=== PATIENT | female | born 1950 | race Hispanic/Latino ===

== ENCOUNTER 2017-04-02 20:38 | Emergency (ER) | payer MEDICARE, BC ==
[2017-04-02 20:55] VITALS: BMI 23.3
--- NOTE | 2017-04-02 21:16 | ED PDOC ---
Arrival/HPI - General Time Seen by Provider: 04/02/17 20:55 Historian: Patient - History of Present Illness Narrative History of Present Illness (Text): 04/02/17 21:05 Marlee Coffey is a 66 year old female who presents to the emergency department complaining of left eye irritation that began prior to arrival. Patient reports she was walking down the street and felt something go into her left eye. Ever since this occurred her eye has been irritated and causing her discomfort. Patient notes wearing glasses, but no contacts. Patient denies other complaints. Time/Duration: Prior to Arrival Symptom Onset: Sudden Symptom Course: Unchanged Quality: Other (irritation) Activities at Onset: Light Context: Walking, Street Past Medical History - Provider Review Nursing Documentation Reviewed: Yes - Tetanus Immunization Tetanus Immunization: Up to Date - Cardiac Hx Hypertension: Yes - Pulmonary Hx Respiratory Disorders: No Hx Asthma: No Hx Bronchitis: No Hx Chronic Obstructive Pulmonary Disease (COPD): No Hx Emphysema: No Hx Pneumonia: No Hx Respiratory Aspiration: No Hx Respiratory Tract Infection: No Hx Sleep Apnea: No Hx Tuberculosis: No - Neurological Hx Neurological Disorder: No Hx Alzheimer's Disease: No HX Cerebrovascular Accident: No Hx Dementia: No Hx Dizziness: No Hx Meningitis: No Hx Migraine: No Hx Parkinson's Disease: No Hx Seizures: No Hx Transient Ischemic Attacks (TIA): No - HEENT Hx HEENT Disorder: No Hx Blind: No Hx Cataracts: No Hx Deafness: No Hx Difficulty Chewing: No Hx Epistaxis: No Hx Glaucoma: No Hx Macular Degeneration: No - Renal Hx Renal Disorder: No Hx Dialysis: No Hx Kidney Stones: No Hx Neurogenic Bladder: No Hx Pyelonephritis: No Hx Renal Cancer: No Hx Renal Failure: No - Endocrine/Metabolic Hx Endocrine Disorders: No Hx Adrenal Cancer: No Hx Diabetes Insipidus: No Hx Diabetes Mellitus Type 1: No Hx Diabetes Mellitus Type 2: No Hx Hyperthyroidism: No Hx Hypothyroidism: No Hx Systemic Lupus Erythematosus: No - Hematological/Oncological Hx Blood Disorders: No Hx AIDS: No Hx Anemia: No Hx Cancer: No Hx Chemotherapy: No Hx Cirrhosis: No Hx Hemophilia: No Hx Hepatitis A: No Hx Hepatitis B: No Hx Hepatitis C: No Hx Metastasis: No Hx Shingles: No Hx Sickle Cell Disease: No Hx Unexplained Bleeding: No - Integumentary Hx Dermatological Disorder: No Hx Basal Cell Carcinoma: No Hx Eczema: No Hx Melanoma: No Hx Psoriasis: No Hx Squamous Cell Carcinoma: No - Musculoskeletal/Rheumatological Hx Musculoskeletal Disorders: Yes Hx Arthritis: No Hx Back Pain: No Hx Degenerative Joint Disease: No Hx Falls: Yes Hx Fractures: Yes (distal radius and ulnar styloid fx) Hx Gout: No Hx Herniated Disk: No Hx Myasthenia Gravis: No Hx Osteoarthritis: No Hx Osteomyelitis: No Hx Osteoporosis: No Hx Rhabdomyolysis: No Hx Spinal Stenosis: No Hx Unsteady Gait: Yes Other/Comment: Multiple Sclerosis - Gastrointestinal Hx Gastrointestinal Disorders: Yes Hx Colostomy: No Hx Crohn's Disease: No Hx Diverticulitis: No Hx Gall Bladder Disease: No Hx Gastroesophageal Reflux: Yes Hx Gastrointestinal Ulcer: No Hx Ileostomy: No Hx Liver Failure: No Hx Pancreatitis: No HX Swallowing Problems: No - Genitourinary/Gynecological Hx Genitourinary Disorders: No Hx Hematuria: No Hx Incontinence: No Hx Prostate Problems: No Hx Sexually Transmitted Diseases: No Hx Urinary Tract Infection: No - Psychiatric Hx Psychophysiologic Disorder: Yes Hx Anxiety: Yes Hx Bipolar Disorder: No Hx Depression: Yes Hx Emotional Abuse: No Hx Hallucinations: No Hx Panic Disorder: No Hx Paranoia: No Hx Post Traumatic Stress Disorder: No Hx Psychosis: No Hx Physical Abuse: No Hx Schizophrenia: No Hx Sexual Abuse: No Hx Substance Use: No - Surgical History Hx Amputation: No Hx Appendectomy: No Hx Cardiac Catheterization: No Hx Cholecystectomy: Yes Hx Coronary Stent: No Hx Gastric Bypass Surgery: No Hx Hysterectomy: No Hx Inguinal Hernia Repair: No Hx Joint Replacement: No Hx Kidney Transplant: No Hx Liver Transplant: No Hx Mastectomy: No Hx Musculoskeletal Surgery: No Hx Open Heart Surgery: No Hx Orthopedic Surgery: No Hx Splenectomy: No Hx Valve Replacement: No - Anesthesia Hx Anesthesia: Yes Hx Anesthesia Reactions: No Hx Malignant Hyperthermia: No - Suicidal Assessment Feels Threatened In Home Enviroment: No Family/Social History - Physician Review Nursing Documentation Reviewed: Yes Family/Social History: Unknown Family HX Smoking Status: Never Smoked Hx Alcohol Use: No Hx Substance Use: No Hx Substance Use Treatment: No Allergies/Home Meds Allergies/Adverse Reactions: Allergies No Known Allergies Allergy (Verified 07/09/15 04:03) Review of Systems - Review of Systems Constitutional: absent: Fevers Eyes: Eye Pain (left eye irritation due to possible foreign substance that entered the eye. ) Respiratory: absent: SOB Cardiovascular: absent: Chest Pain Physical Exam Temperature: Afebrile Blood Pressure: Normal Pulse: Regular Respiratory Rate: Normal Appearance: Positive for: Well-Appearing, Non-Toxic, Comfortable Pain Distress: None Mental Status: Positive for: Alert and Oriented X 3 - Systems Exam Head: Present: Atraumatic, Normocephalic Pupils: Present: PERRL, Other (tearing of left eye. no foreign susbtance were identified on eversion of lid) Extroacular Muscles: Present: EOMI Conjunctiva: Present: Injected Neck: Present: Normal Range of Motion Upper Extremity: Present: Normal ROM Lower Extremity: Present: Normal ROM Neurological: Present: GCS=15, CN II-XII Intact, Speech Normal Skin: Present: Warm, Dry, Normal Color. No: Rashes Psychiatric: Present: Alert, Oriented x 3, Normal Insight, Normal Concentration Medical Decision Making ED Course and Treatment: 04/02/17 Impression: 66 year old female with irritation on the left eye. No detection of foreign bodies. Plan: -- Visual acuity, irrigation, fluoroscein stain -- Reassess and disposition Progress Notes: Flushing and staining of the eye to detect foreign particles. 04/02/17 21:42 Eye was copiously irrigated with 250cc NS. Visual acuity 20/30 vision b/l. Corneal abrasion appreciated at 6oclock - Scribe Statement The provider has reviewed the documentation as recorded by the Scribe 04/02/2017 Cinthia Duffya Provider Scribe Attestation: All medical record entries made by the Scribe were at my direction and personally dictated by me. I have reviewed the chart and agree that the record accurately reflects my personal performance of the history, physical exam, medical decision making, and the department course for this patient. I have also personally directed, reviewed, and agree with the discharge instructions and disposition. Disposition/Present on Arrival - Present on Arrival Any Indicators Present on Arrival: No History of DVT/PE: No History of Uncontrolled Diabetes: No Urinary Catheter: No History Surgical Site Infection Following: None - Disposition Have Diagnosis and Disposition been Completed?: Yes Diagnosis: Corneal abrasion Disposition: HOME/ ROUTINE Disposition Time: 21:42 Patient Plan: Discharge Patient Problems: Current Active Problems Problem Status Onset Corneal abrasion Acute Condition: GOOD Discharge Instructions (ExitCare): Corneal Abrasion (ED) Additional Instructions: Follow up with [facility] within 2 days. Use drop for 5 days. Return immediately with any worsening symptoms Prescriptions: Ciprofloxacin 0.3% [Ciloxan 0.3% Ophth SOLN] 2 drop OS QID #1 bottle Referrals: José Richard MD [Primary Care Provider] - Follow up with primary
[2017-04-02 22:01] VITALS: BP 176/94; PULSE 66; RESP 18; O2SAT 96
== END 2017-04-02 22:15 | disposition home or self-care (01) ==
LOC: ED 20:38
DX: S05.02XA Injury of conjunctiva and corneal abrasion without foreign body, left eye, initial encounter (principal); X58.XXXA Exposure to other specified factors, initial encounter; Y93.01 Activity, walking, marching and hiking; Y92.410 Unspecified street and highway as the place of occurrence of the external cause

== ENCOUNTER 2017-05-10 14:56 | Inpatient (IN) | payer MEDICARE, BC ==
[2017-05-10 15:28] VITALS: BMI 29.8
--- NOTE | 2017-05-10 15:32 | RAD ---
HISTORY: code stroke COMPARISON: 12/27/2013 FINDINGS: LUNGS: No active pulmonary disease. PLEURA: No significant pleural effusion identified, no pneumothorax apparent. CARDIOVASCULAR: Normal. OSSEOUS STRUCTURES: No significant abnormalities. VISUALIZED UPPER ABDOMEN: Normal. OTHER FINDINGS: None. IMPRESSION: No active disease.
--- NOTE | 2017-05-10 15:32 | CT ---
PROCEDURE: CT HEAD WITHOUT CONTRAST. HISTORY: Code Stroke COMPARISON: MRI brain with and without contrast from 07/25/[address] from 05/13/2016. TECHNIQUE: Axial computed tomography images were obtained through the head/brain without intravenous contrast. Radiation dose: Total exam DLP = 941.65 mGy-cm. This CT exam was performed using one or more of the following dose reduction techniques: Automated exposure control, adjustment of the mA and/or kV according to patient size, and/or use of iterative reconstruction technique. FINDINGS: HEMORRHAGE: No intracranial hemorrhage. BRAIN: There are mild chronic microangiopathic changes. There is no mass, mass effect or abnormal extra-axial fluid collection. VENTRICLES: There is mild age-related global parenchymal volume loss and proportionate enlargement of the ventricles and cortical sulci CALVARIUM: The skull base and calvarium are normal. PARANASAL SINUSES: Predominantly clear. MASTOID AIR CELLS: Predominantly clear. OTHER FINDINGS: None. IMPRESSION: No acute intracranial abnormality. Mild chronic microangiopathic changes and mild age-related global parenchymal volume loss. Findings were discussed with Dr. Ronnell Stauffer in the ER on 05/10/2017 at 3:27 p.m.
[2017-05-10 15:52] LABS: BASO # 0.07 K/mm3 (0.0-2.0); BASO % 1.1 % (0.0-3.0); EOS # 0.4 (0.0-0.7); EOS % 6.9 % (1.5-5.0); GRAN # 3.07 (1.4-6.5); GRAN % 48.9 % (50.0-68.0); HEMATOCRIT 39.3 % (36.0-48.0); LYMPH # 2.1 (1.2-3.4); LYMPH % 33.8 % (22.0-35.0); MEAN CELL VOLUME 88.5 fl (80.0-105.0); MEAN CORPUSCULAR HEMOGLOBIN 29.1 pg (25.0-35.0); MEAN CORPUSCULAR HGB CONC 32.8 g/dl (31.0-37.0); MEAN PLATELET VOLUME 8.8 fl (7.0-11.0); MONO # 0.6 (0.1-0.6); MONO % 9.3 % (1.0-6.0); RED CELL DISTRIBUTION WIDTH 14.1 % (11.5-14.5); WHITE BLOOD COUNT 6.3 10^3/ul (4.5-11.0)
[2017-05-10 15:54] LABS: ALB/GLOB RATIO 1.3 (1.1-1.8); ALKALINE PHOSPHATASE 74 U/L (38-126); ALT/SGPT 31 U/L (7-56); AST/SGOT 26 U/L (14-36); BILIRUBIN,TOTAL 0.5 mg/dL (0.2-1.3); BLOOD UREA NITROGEN 19 mg/dL (7-21); CALCIUM 9.1 mg/dL (8.4-10.5); CARBON DIOXIDE 28 mmol/L (21-33); CHLORIDE 105 mmol/L (98-107); CHOLESTEROL 170 mg/dL (130-200); GFR AFRICAN-AMERICAN > 60; GLUCOSE,RANDOM 84 mg/dL (70-110); POTASSIUM 3.4 mmol/L (3.6-5.0); SODIUM 142 mmol/L (132-148); TOTAL PROTEIN 6.3 g/dL (5.8-8.3)
[2017-05-10 15:56] LABS: INR 0.98 (0.93-1.08); PARTIAL THROMBOPLASTIN TIME 25.2 Seconds (23.7-30.8)
--- NOTE | 2017-05-10 16:04 | ED PDOC ---
Arrival/HPI - General Chief Complaint: Dizziness/Lightheaded Time Seen by Provider: 05/10/17 14:59 Historian: Patient, Family, EMS - History of Present Illness Narrative History of Present Illness (Text): 05/10/17 15:05 A 66 year old female, whose past medical history includes MS, is brought in by EMS while AMS. Per family, they reported patient to have "facial twitching". Patient was confused and had become altered. Patient has no known seizure history. She had a recent EEG with no known results. Patient denies of any complaints of this time and is mildly confused. Code stroke was called upon patient's arrival. PMD: Dr. Richard Symptom Onset: Sudden Symptom Course: Unchanged Past Medical History - Provider Review Nursing Documentation Reviewed: Yes - Infectious Disease Hx of Infectious Diseases: None - Tetanus Immunization Tetanus Immunization: Up to Date - Cardiac Hx Hypertension: Yes - Pulmonary Hx Respiratory Disorders: No Hx Asthma: No Hx Bronchitis: No Hx Chronic Obstructive Pulmonary Disease (COPD): No Hx Emphysema: No Hx Pneumonia: No Hx Respiratory Aspiration: No Hx Respiratory Tract Infection: No Hx Sleep Apnea: No Hx Tuberculosis: No - Neurological Hx Neurological Disorder: No Hx Alzheimer's Disease: No HX Cerebrovascular Accident: No Hx Dementia: No Hx Dizziness: No Hx Meningitis: No Hx Migraine: No Hx Parkinson's Disease: No Hx Seizures: No Hx Transient Ischemic Attacks (TIA): No - HEENT Hx HEENT Disorder: No Hx Blind: No Hx Cataracts: No Hx Deafness: No Hx Difficulty Chewing: No Hx Epistaxis: No Hx Glaucoma: No Hx Macular Degeneration: No - Renal Hx Renal Disorder: No Hx Dialysis: No Hx Kidney Stones: No Hx Neurogenic Bladder: No Hx Pyelonephritis: No Hx Renal Cancer: No Hx Renal Failure: No - Endocrine/Metabolic Hx Endocrine Disorders: No Hx Adrenal Cancer: No Hx Diabetes Insipidus: No Hx Diabetes Mellitus Type 1: No Hx Diabetes Mellitus Type 2: No Hx Hyperthyroidism: No Hx Hypothyroidism: No Hx Systemic Lupus Erythematosus: No - Hematological/Oncological Hx Blood Disorders: No Hx AIDS: No Hx Anemia: No Hx Cancer: No Hx Chemotherapy: No Hx Cirrhosis: No Hx Hemophilia: No Hx Hepatitis A: No Hx Hepatitis B: No Hx Hepatitis C: No Hx Metastasis: No Hx Shingles: No Hx Sickle Cell Disease: No Hx Unexplained Bleeding: No - Integumentary Hx Dermatological Disorder: No Hx Basal Cell Carcinoma: No Hx Eczema: No Hx Melanoma: No Hx Psoriasis: No Hx Squamous Cell Carcinoma: No - Musculoskeletal/Rheumatological Hx Musculoskeletal Disorders: Yes Hx Arthritis: No Hx Back Pain: No Hx Degenerative Joint Disease: No Hx Falls: Yes Hx Fractures: Yes (distal radius and ulnar styloid fx) Hx Gout: No Hx Herniated Disk: No Hx Myasthenia Gravis: No Hx Osteoarthritis: No Hx Osteomyelitis: No Hx Osteoporosis: No Hx Rhabdomyolysis: No Hx Spinal Stenosis: No Hx Unsteady Gait: Yes Other/Comment: Multiple Sclerosis - Gastrointestinal Hx Gastrointestinal Disorders: Yes Hx Colostomy: No Hx Crohn's Disease: No Hx Diverticulitis: No Hx Gall Bladder Disease: No Hx Gastroesophageal Reflux: Yes Hx Gastrointestinal Ulcer: No Hx Ileostomy: No Hx Liver Failure: No Hx Pancreatitis: No HX Swallowing Problems: No - Genitourinary/Gynecological Hx Genitourinary Disorders: No Hx Hematuria: No Hx Incontinence: No Hx Prostate Problems: No Hx Sexually Transmitted Diseases: No Hx Urinary Tract Infection: No - Psychiatric Hx Psychophysiologic Disorder: Yes Hx Anxiety: Yes Hx Bipolar Disorder: No Hx Depression: Yes Hx Emotional Abuse: No Hx Hallucinations: No Hx Panic Disorder: No Hx Post Traumatic Stress Disorder: No Hx Psychosis: No Hx Physical Abuse: No Hx Schizophrenia: No Hx Sexual Abuse: No Hx Substance Use: No - Surgical History Hx Amputation: No Hx Appendectomy: No Hx Cardiac Catheterization: No Hx Cholecystectomy: Yes Hx Coronary Stent: No Hx Gastric Bypass Surgery: No Hx Hysterectomy: No Hx Joint Replacement: No Hx Kidney Transplant: No Hx Liver Transplant: No Hx Mastectomy: No Hx Musculoskeletal Surgery: No Hx Open Heart Surgery: No Hx Orthopedic Surgery: No Hx Splenectomy: No Hx Valve Replacement: No - Anesthesia Hx Anesthesia: Yes Hx Anesthesia Reactions: No Hx Malignant Hyperthermia: No - Suicidal Assessment Feels Threatened In Home Enviroment: No Family/Social History - Physician Review Nursing Documentation Reviewed: Yes Family/Social History: No Known Family HX Smoking Status: Never Smoked Hx Alcohol Use: No Hx Substance Use: No Hx Substance Use Treatment: No Allergies/Home Meds Allergies/Adverse Reactions: Allergies No Known Allergies Allergy (Verified 05/10/17 18:09) Home Medications: Home Meds Medication Instructions Recorded Confirmed Alprazolam [Xanax] 0.5 mg PO Q8H 05/10/17 05/10/17 Atorvastatin [Lipitor] 40 mg PO DAILY 05/10/17 05/10/17 Diclofenac Sodium/Misoprostol 1 tab PO BID 05/10/17 05/10/17 [Arthrotec 75 mg-200 Mcg Tab] Esomeprazole Magnesium [Nexium] 40 mg PO DAILY 05/10/17 05/10/17 Folic Acid [Folic Acid] 1 mg PO DAILY 05/10/17 05/10/17 Loratadine [Claritin] 1 tab PO DAILY 05/10/17 05/10/17 Losartan [Cozaar] 50 mg PO DAILY 05/10/17 05/10/17 Teriflunomide [Aubagio] 1 tab PO DAILY 05/10/17 05/10/17 Review of Systems - Review of Systems Systems not reviewed;Unavailable: Altered Mental Status Physical Exam - Physical Exam Physical Exam Limitations: Altered Mental Status Vital Signs Reviewed: Yes Vital Signs Temp Pulse Resp BP Pulse Ox 05/10/17 19:53 78 16 163/95 H 96 05/10/17 17:15 84 17 159/78 H 96 05/10/17 15:22 98.2 F 81 18 133/84 100 Temperature: Afebrile Blood Pressure: Normal Pulse: Regular Respiratory Rate: Normal Appearance: Positive for: Well-Appearing Pain Distress: None Mental Status: Positive for: Alert and Oriented X 3 Finger Stick Blood Glucose: 80 - Systems Exam Neurological: Present: Other (benign, patient confused) Medical Decision Making ED Course and Treatment: Impression: 66 year old female AMS. Neuro exam benign. Plan: -- EKG -- Head CT -- Chest X-ray -- Labs -- Urinalysis -- Reassess and disposition Prior Visits: Notes and results from previous visits were reviewed. Patient was last seen in the emergency department on 03/13/2017 for left eye irritation. Patient was d/c home. Progress Notes: EKG: Ordered, reviewed, and independently interpreted the EKG. Rate : 77 BPM Rhythm : NSR Interpretation : No ST-segment elevations or depressions, no T-wave inversions, normal intervals. Comparison : No previous EKG for comparison. 05/10/2017 15:[address] FINDINGS: HEMORRHAGE: No intracranial hemorrhage. BRAIN: There are mild chronic microangiopathic changes. There is no mass, mass effect or abnormal extra-axial fluid collection. VENTRICLES: There is mild age-related global parenchymal volume loss and proportionate enlargement of the ventricles and cortical sulci CALVARIUM: The skull base and calvarium are normal. PARANASAL SINUSES: Predominantly clear. MASTOID AIR CELLS: Predominantly clear. OTHER FINDINGS: None. IMPRESSION: No acute intracranial abnormality. Mild chronic microangiopathic changes and mild age-related global parenchymal volume loss. Findings were discussed with Dr. Ronnell Stauffer in the ER on 05/10/2017 at 3:27 p.m. Dictator: Codi Shay MD 05/10/2017 15:00 Chest X-ray FINDINGS: LUNGS: No active pulmonary disease. PLEURA: No significant pleural effusion identified, no pneumothorax apparent. CARDIOVASCULAR: Normal. OSSEOUS STRUCTURES: No significant abnormalities. VISUALIZED UPPER ABDOMEN: Normal. OTHER FINDINGS: None. IMPRESSION: No active disease. Dictator: Nicko Lozada MD 05/10/[address] Corrales, whom states patient is not a candidate for tPA and recommends having an MRI done on patient. - Lab Interpretations Lab Results: 05/10/17 15:30 05/10/17 15:30 Lab Results 05/10/17 15:30: Blood Type A POSITIVE, Antibody Screen Negative, BBK History Checked Patient has bt 05/10/17 15:30: Sodium 142, Potassium 3.4 L, Chloride 105, Carbon Dioxide 28, Anion Gap 12, BUN 19, Creatinine 1.1, Est GFR ( Amer) > 60, Est GFR (Non- Af Amer) 50, Random Glucose 84, Calcium 9.1, Total Bilirubin 0.5, AST 26, ALT 31 , Alkaline Phosphatase 74, Lactate Dehydrogenase 434, Total Creatine Kinase 50, Troponin I < 0.01, Total Protein 6.3, Albumin 3.6, Globulin 2.7, Albumin/ Globulin Ratio 1.3, Triglycerides 77, Cholesterol 170, LDL Cholesterol Direct 81 , HDL Cholesterol 66 H 05/10/17 15:30: PT 10.6, INR 0.98, APTT 25.2 05/10/17 15:30: WBC 6.3, RBC 4.44, Hgb 12.9, Hct 39.3, MCV 88.5, MCH 29.1, MCHC 32.8, RDW 14.1, Plt Count 249, MPV 8.8, Gran % 48.9 L, Lymph % (Auto) 33.8, [place] % (Auto) 9.3 H, Eos % (Auto) 6.9 H, Baso % (Auto) 1.1, Gran # 3.07, Lymph # 2.1, [place] # 0.6, Eos # 0.4, Baso # 0.07 I have reviewed the lab results: Yes - RAD Interpretation Radiology Orders: 05/10/17 15:00 HEAD W/O (CODE STROKE) [CT] Stat CHEST PORTABLE [RAD] Stat - Medication Orders Current Medication Orders: Alprazolam (Xanax) 0.5 mg PO DAILY MARYSE PRN Reason: Protocol Alprazolam (Xanax) 0.5 mg PO BID PRN; Protocol PRN Reason: Anxiety Amlodipine Besylate (Norvasc) 10 mg PO DAILY MARYSE Atorvastatin Calcium (Lipitor) 40 mg PO DAILY MARYSE Clonazepam (Klonopin) 0.5 mg PO HS MARYSE PRN Reason: Protocol Last Admin: 05/10/17 22:45 Dose: 0.5 mg Behavioural Document 05/10/17 22:45 GC (Rec: 05/10/17 22:45 [id number] Maintenance Maintenance Dose Yes Nonmedicinal Nonmedicinal Interventions Redirect Therapeutic Communication Activity Behavior Behavior for Medication: Anxiety Re-Assess: Reassess Psych Meds Document 05/10/17 23:45 GC (Rec: 05/10/17 23:58 GC [id number]) Reassess Psych Med Effective Famotidine (Pepcid) 40 mg PO HS MARYSE Folic Acid (Folic Acid) 1 mg PO DAILY MARYSE Home Med (Home Med) 1 unit PO DAILY MARYSE Loratadine (Claritin) 10 mg PO DAILY MARYSE Losartan Potassium (Cozaar) 50 mg PO DAILY MARYSE Paroxetine HCl (Paxil) 10 mg PO DAILY MARYSE Topiramate (Topamax) 200 mg PO BID MARYSE PRN Reason: Protocol Discontinued Medications Alprazolam (Xanax) 0.5 mg PO Q8H PRN; Protocol PRN Reason: Anxiety Last Admin: 05/11/17 06:30 Dose: 0.5 mg Behavioural Document 05/11/17 06:30 GC (Rec: 05/11/17 06:30 GC [id number]) Maintenance Maintenance Dose Yes Nonmedicinal Nonmedicinal Interventions Redirect Therapeutic Communication Activity Behavior Behavior for Medication: Anxiety Amlodipine Besylate (Norvasc) 10 mg PO DAILY [facility] Last Admin: 05/11/17 06:30 Dose: 10 mg MAR Blood Pressure Document 05/11/17 06:30 GC (Rec: 05/11/17 06:30 GC [id number]) Blood Pressure Blood Pressure (100/60-150/90) 164/94 Aspirin (Aspirin) 325 mg PO STAT STA Stop: 05/10/17 15:34 Last Admin: 05/10/17 16:33 Dose: 325 mg Losartan Potassium (Cozaar) 50 mg PO DAILY [facility] Last Admin: 05/11/17 06:33 Dose: 50 mg MAR Pulse and Blood Pressure Document 05/11/17 06:33 GC (Rec: 05/11/17 06:33 GC [id number]) Pulse Pulse Rate (60-90) 74 Blood Pressure Blood Pressure (100/60-150/90) 164/99 Pneumococcal Polyvalent Vaccine (Pneumovax 23 Vaccine) 0.5 ml IM .ONCE ONE Stop: 05/10/17 23:18 Potassium Chloride (K-Dur 20 Meq Er Tab) 20 meq PO STAT STA Stop: 05/10/17 20:29 Last Admin: 05/10/17 20:47 Dose: 20 meq rTPA Inclusion/Exclusion - Refusal of Treatment Patient Refused Treatment: No - Inclusion Criteria for Altepase Patient is 18 years or Older: Yes The Clinical Diagnosis of Ischemic Stroke That is Causing a Potentially Disabling Neurological Deficit: No Time of Onset is Well Established to be Less Than 270 Minute Before Treatment Would Begin: No Risk/Benefit Discussed With Patient/Family Member Present: Yes NIHSS Stroke Scale 3 - Date/Time Evaluation Performed Date Performed: 05/10/17 Time Performed: 05:00 When Was NIHSS Performed: Code Stroke - How Severe is the Stroke Level of Consciousness: 1=Drowsy LOC to Questions: 0=Both comments correct LOC to commands: 0=Obeys both correctly Best Gaze: 0=Normal Visual: 0=No visual loss Facial: 0=Normal Motor Arm - Left: 0=No drift Motor Arm - Right: 0=No drift Motor Leg - Left: 0=No drift Motor Leg - Right: 0=No drift Limb Ataxia: 0=Absent Sensory: 0=Normal Best Language: 0=No aphasia Dysarthia: 0=Normal articulation Extinction & Inattention (Neglect): 0=Normal, no object Score: 1 - Scribe Statement The provider has reviewed the documentation as recorded by the Keithibkaren Alberto Provider Scribe Attestation: All medical record entries made by the Scribe were at my direction and personally dictated by me. I have reviewed the chart and agree that the record accurately reflects my personal performance of the history, physical exam, medical decision making, and the department course for this patient. I have also personally directed, reviewed, and agree with the discharge instructions and disposition. Disposition/Present on Arrival - Present on Arrival Any Indicators Present on Arrival: No History of DVT/PE: No History of Uncontrolled Diabetes: No Urinary Catheter: No History of Decub. Ulcer: No History Surgical Site Infection Following: None - Disposition Have Diagnosis and Disposition been Completed?: Yes Diagnosis: Multiple sclerosis, Altered mental status Disposition: HOSPITALIZED Disposition Time: 05:00 Condition: STABLE
[2017-05-10 16:17] LABS: TROPONIN I < 0.01 ng/mL
[2017-05-10 19:39] LABS: URINE BILIRUBIN NEGATIVE (NEGATIVE); URINE BLOOD TRACE-INTACT (NEGATIVE); URINE GLUCOSE (UA) NEGATIVE (NEGATIVE); URINE KETONE NEGATIVE (NEGATIVE); URINE LEUKOCYTE ESTERASE NEGATIVE Leu/uL (NEGATIVE); URINE PROTEIN NEGATIVE mg/dL (<30 mg/dL); URINE UROBILINOGEN 0.2 E.U./dL (<1 E.U./dL)
[2017-05-10 19:41] LABS: URINE APPEARANCE SLIGHT-CLOUDY (CLEAR); URINE COLOR YELLOW (YELLOW)
[2017-05-10 19:48] LABS: URINE BACTERIA MANY (NEG); URINE EPITHELIAL CELLS 0 - 2 /hpf (0-5); URINE RBC 0 - 2 /hpf (0-2); URINE WBC 0 - 2 /hpf (0-6)
[2017-05-10] MEDS ORDERED: Potassium Chloride 20 mEq ER Tab PO STA (20:28)
--- NOTE | 2017-05-10 20:43 | CARD ---
APPROVED REPORT EKG Measurement Heart [id number] <Conclusion> Normal sinus rhythm Low voltage QRS Septal infarct, age undetermined Abnormal ECG
[2017-05-10] MEDS ORDERED: Pneumococcal 23-Valent Vaccine IM ONE (23:17)
--- NOTE | 2017-05-11 09:16 | HP ---
DATE: 05/11/2017 HISTORY OF PRESENT ILLNESS: This is a 66-year-old female who has come into the hospital. She has complaints of facial twitching. The patient's is at the bedside and was able to give me information. She had an EEG done that was finished yesterday by Dr. Agrawal, who is her neurologist. The patient's said that she was confused. She has no history of seizures. The patient has no complaints of any chest pain. No nausea, no vomiting, no dysuria, no frequency, no nocturia, and no weakness in the arms or the legs. She feels fatigued at times. She does have a history of MS. REVIEW OF SYSTEMS: All other review of symptoms are within normal limits except as mentioned. PAST MEDICAL HISTORY: 1. Fall. 2. Left inguinal hematoma. 3. Multiple sclerosis. 4. Dyslipidemia. 5. Left distal ulnar and radial fracture. 6. Hypertension. 7. Anxiety. 8. Osteoporosis. FAMILY HISTORY: She is adapted. SOCIAL HISTORY: She never smokes. She denies alcohol or drug use. She is , disabled, and is homebound because of MS. HOME MEDICATIONS: Have been reviewed on the medical reconciliation form. ALLERGIES: NO KNOWN DRUG ALLERGIES. PHYSICAL EXAMINATION: VITAL SIGNS: Temperature is 97.8, pulse is 66, blood pressure is 157/95, respirations 20, and O2 saturation 97%. GENERAL: The patient lying in bed, uncomfortable, and in no acute distress. HEENT: Atraumatic and normocephalic. Anicteric sclerae. Moist mucosa. [place] conjunctivae. No oral lesions. NECK: No JVD, anterior and posterior adenopathy, thyromegaly, or bruits. CARDIOVASCULAR: S1 and S2 regular. No murmur, rubs, or gallop. LUNGS: Clear to auscultation bilaterally. No wheezes, rales, or rhonchi. ABDOMEN: Bowel sounds are positive. Soft, nontender and nondistended. No hepatosplenomegaly. No rebound and no guarding EXTREMITIES: No cyanosis, clubbing, or edema. NEUROLOGIC: No new deficits from previously. PSYCHIATRIC: She is awake, alert and oriented x3. No anxiety or depression. She has normal affect. GENITOURINARY: No CVA tenderness. VASCULAR: 2+ pulses in the carotid pulses and pedal pulses. SKIN: No erythema or nodules. SPINE: Shows normal curvature. EXTREMITIES: No cyanosis and clubbing, no edema. LABORATORY DATA: Labs have been reviewed. Hemoglobin is 12.9. Chemistry shows potassium is 3.4. Troponin is 0.01. The patient's CT head shows no acute intracranial abnormalities. There is mild chronic mitral angiopathic changes. Chest x-ray shows no active disease. Low voltage QRS, heart rate of 77. ASSESSMENT: 1. Possible new-onset seizures. 2. Multiple sclerosis. 3. Dyslipidemia. 4. Hypertension. 5. Anxiety. PLAN: The patient is currently comfortable. She does have hypertension that is not controlled. She was given her medications early. She prefers to have Xanax, Norvasc and Losartan to be given early. She is going to continue with her Topamax. She is on Xanax as needed. The patient has an MRI that I have ordered. I have asked Dr. Corrales to evaluate the patient. I did speak to Dr. Corrales's resident. We will repeat the patient's blood work tomorrow. I did speak to the patient's at the bedside. I will discontinue telemetry monitoring. We will await for the input from Dr. Corrales. The patient did have EEG and may need to get results if possible from his office. Abisai Delarosa MD
[2017-05-11 10:00] LABS: HEMATOCRIT 38.8 % (36.0-48.0); MEAN CELL VOLUME 88.8 fl (80.0-105.0); MEAN CORPUSCULAR HEMOGLOBIN 28.4 pg (25.0-35.0); MEAN PLATELET VOLUME 8.6 fl (7.0-11.0); WHITE BLOOD COUNT 5.3 10^3/ul (4.5-11.0)
[2017-05-11 10:08] LABS: BLOOD UREA NITROGEN 19 mg/dL (7-21); CALCIUM 8.9 mg/dL (8.4-10.5); CARBON DIOXIDE 28 mmol/L (21-33); CHLORIDE 106 mmol/L (95-110); GFR AFRICAN-AMERICAN > 60; GLUCOSE,RANDOM 98 mg/dL (70-110); MAGNESIUM 1.9 mg/dL (1.7-2.2); POTASSIUM 3.8 mmol/L (3.6-5.0); SODIUM 144 mmol/L (132-148)
--- NOTE | 2017-05-11 10:43 | CP.PCM.CON ---
<Marisel Suggs - Last Filed: 05/11/17 10:37> History of Present Illness - History of Present Illness History of Present Illness: Neurology Consult Note for Christian Lara PGY2 Reason for consult: AMS/ seizures This is a 66Y F with PMH multiple sclerosis, HTN, anxiety/depression, GERD and HLD who came to ED for AMS and seizure like activity. According to the patient and her , patient had an ambulatory EEG for 1 week that was removed yesterday by Dr. Agrawal. She had the EEG because she was having intermittent seizure like activity. The EEG has not been read yet. After they left the clinic , the patient had a seizure which was described by her and lip smacking and turning her head to one side. She did not lose consciousness, bite her tongue or have bilateral tonic/clonic movements. After the episode, patient was confused. As of this morning, she is A&O x3. She denies having any new weakness , vision changes, numbness/tingling, fever/chills, CP, SOB, n/v/d. Head CT was negative to acute changes. PMH: multiple sclerosis, HTN, anxiety/depression, GERD and HLD Home meds: As per MAR NKDA SH: Denies EtOH, drug or tobacco use. Lives with PMD: Dr. Richard Neurologist: Dr. Agrawal Review of Systems - Review of Systems All systems: reviewed and no additional remarkable complaints except Review of Systems: + seizure activity Past Patient History - Infectious Disease Hx of Infectious Diseases: None - Tetanus Immunizations Tetanus Immunization: Up to Date - Past Social History Smoking Status: Never Smoked - CARDIAC Hx Hypertension: Yes - PULMONARY Hx Respiratory Disorders: No Hx Asthma: No Hx Bronchitis: No Hx Chronic Obstructive Pulmonary Disease (COPD): No Hx Emphysema: No Hx Pneumonia: No Hx Respiratory Aspiration: No Hx Respiratory Tract Infection: No Hx Sleep Apnea: No Hx Tuberculosis: No - NEUROLOGICAL Hx Neurological Disorder: No Hx Alzheimer's Disease: No HX Cerebrovascular Accident: No Hx Dementia: No Hx Dizziness: No Hx Meningitis: No Hx Migraine: No Hx Parkinson's Disease: No Hx Seizures: No Hx Transient Ischemic Attacks (TIA): No - HEENT Hx HEENT Problems: No Hx Blind: No Hx Cataracts: No Hx Deafness: No Hx Difficulty Chewing: No Hx Epistaxis: No Hx Glaucoma: No Hx Macular Degeneration: No - RENAL Hx Chronic Kidney Disease: No Hx Dialysis: No Hx Kidney Stones: No Hx Neurogenic Bladder: No Hx Pyelonephritis: No Hx Renal (Kidney) Cancer: No Hx Renal Failure: No - ENDOCRINE/METABOLIC Hx Endocrine Disorders: No Hx Adrenal Cancer: No Hx Diabetes Insipidus: No Hx Diabetes Mellitus Type 1: No Hx Diabetes Mellitus Type 2: No Hx Hyperthyroidism: No Hx Hypothyroidism: No Hx Systemic Lupus Erythematosus: No - HEMATOLOGICAL/ONCOLOGICAL Hx Blood Disorders: No Hx AIDS: No Hx Anemia: No Hx Cancer: No Hx Chemotherapy: No Hx Cirrhosis: No Hx Hemophilia: No Hx Hepatitis A: No Hx Hepatitis B: No Hx Hepatitis C: No Hx Metastesis: No Hx Shingles: No Hx Sickle Cell Disease: No Hx Unexplained Bleeding: No - INTEGUMENTARY Hx Dermatological Problems: Yes Hx Basil Cell: No Hx Eczema: No Hx Melanoma: No Hx Psoriasis: No Hx Squamous Cell: Yes (MID CHEST AREA.SCRAPED) - MUSCULOSKELETAL/RHEUMATOLOGICAL Hx Musculoskeletal Disorders: Yes Hx Arthritis: No Hx Back Pain: No Hx Degenerative Joint Disease: No Hx Falls: Yes Hx Fractures: Yes (distal radius and ulnar styloid fx) Hx Gout: No Hx Herniated Disk: No Hx Myasthenia Gravis: No Hx Osteoarthritis: No Hx Osteomyelitis: No Hx Osteoporosis: No Hx Rhabdomyolysis: No Hx Spinal Stenosis: No Hx Unsteady Gait: Yes Other/Comment: Multiple Sclerosis - GASTROINTESTINAL Hx Gastrointestinal Disorders: Yes Hx Colostomy: No Hx Crohn's Disease: No Hx Diverticulitis: No Hx Gall Bladder Disease: No Hx Gastroesophageal Reflux: Yes Hx Ileostomy: No Hx Liver Failure: No Hx Pancreatitis: No HX Swallowing Problems: No - GENITOURINARY/GYNECOLOGICAL Hx Genitourinary Disorders: No Hx Hematuria: No Hx Incontinence: No Hx Sexually Transmitted Disorders: No Hx Urinary Tract Infection: No - PSYCHIATRIC Hx Psychophysiologic Disorder: Yes Hx Anxiety: Yes Hx Bipolar Disorder: No Hx Depression: Yes Hx Emotional Abuse: No Hx Hallucinations: No Hx Panic Symptoms: No Hx Post Traumatic Stress Disorder: No Hx Psychosis: No Hx Physical Abuse: No Hx Schizophrenia: No Hx Sexual Abuse: No Hx Substance Use: No - SURGICAL HISTORY Hx Surgeries: Yes (RIGHT TOE SX WITH TITANIUM PLATE) Hx Amputation: No Hx Appendectomy: No Hx Cardiac Catheterization: No Hx Cholecystectomy: Yes Hx Coronary Stent: No Hx Gastric Bypass Surgery: No Hx Hysterectomy: No Hx Joint Replacement: No Hx Kidney Transplant: No Hx Liver Transplant: No Hx Mastectomy: No Hx Musculoskeletal Surgery: No Hx Open Heart Surgery: No Hx Orthopedic Surgery: No Hx Splenectomy: No Hx Valve Replacement: No - ANESTHESIA Hx Anesthesia: Yes Hx Anesthesia Reactions: No Hx Malignant Hyperthermia: No Meds Allergies/Adverse Reactions: Allergies Allergy/AdvReac Type Severity Reaction Status Date / Time No Known Allergies Allergy Verified 05/10/17 18:09 - Medications Medications: Current Medications Alprazolam (Xanax) 0.5 mg PO DAILY MARYSE PRN Reason: Protocol Alprazolam (Xanax) 0.5 mg PO BID PRN; Protocol PRN Reason: Anxiety Amlodipine Besylate (Norvasc) 10 mg PO DAILY MARYSE Atorvastatin Calcium (Lipitor) 40 mg PO DAILY MARYSE Clonazepam (Klonopin) 0.5 mg PO HS MARYSE PRN Reason: Protocol Last Admin: 05/10/17 22:45 Dose: 0.5 mg Famotidine (Pepcid) 40 mg PO HS [facility] Folic Acid (Folic Acid) 1 mg PO DAILY M[facility] Loratadine (Claritin) 10 mg PO DAILY [facility] Losartan Potassium (Cozaar) 50 mg PO DAILY [facility] Paroxetine HCl (Paxil) 10 mg PO DAILY [facility] Topiramate (Topamax) 200 mg PO BID MARYSE PRN Reason: Protocol Physical Exam - Constitutional Appears: No Acute Distress - Head Exam Head Exam: ATRAUMATIC, NORMAL INSPECTION, NORMOCEPHALIC - Eye Exam Eye Exam: Normal appearance, PERRL Pupil Exam: NORMAL ACCOMODATION, PERRL - ENT Exam ENT Exam: Mucous Membranes Moist Additional comments: poor dentition - Respiratory Exam Respiratory Exam: Clear to Auscultation Bilateral, NORMAL BREATHING PATTERN. absent: Rales, Rhonchi, Wheezes - Cardiovascular Exam Cardiovascular Exam: REGULAR RHYTHM, +S1, +S2. absent: Gallop, Rubs, Systolic Murmur - GI/Abdominal Exam GI & Abdominal Exam: Normal Bowel Sounds, Soft. absent: Rebound, Rigid, Tenderness - Extremities Exam Extremities exam: Positive for: normal inspection. Negative for: calf tenderness, pedal edema - Neurological Exam Neurological exam: Alert, CN II-XII Intact, Oriented x3 Additional comments: No focal neurologic deficits noted. No pronator drift. - Psychiatric Exam Psychiatric exam: Anxious, Normal Affect, Normal Mood - Skin Skin Exam: Dry, Intact, Normal Color, Warm Results - Vital Signs Recent Vital Signs: Last Vital Signs Temp 97.6 F 05/11/17 09:47 Pulse 84 05/11/17 09:47 Resp 18 05/11/17 09:47 BP 140/78 05/11/17 09:47 Pulse Ox 95 05/11/17 09:47 - Labs Result Diagrams: 05/11/17 09:45 05/11/17 09:45 Labs: Laboratory Results - last 24 hr 05/10/17 05/11/17 05/11/17 18:55 09:45 09:45 WBC 5.3 RBC 4.37 Hgb 12.4 Hct 38.8 MCV 88.8 MCH 28.4 MCHC 32.0 RDW 14.0 Plt Count 235 MPV 8.6 Sodium 144 Potassium 3.8 Chloride 106 Carbon Dioxide 28 Anion Gap 14 BUN 19 Creatinine 0.8 Est GFR ( Amer) > 60 Est GFR (Non-Af Amer) > 60 Random Glucose 98 Calcium 8.9 Magnesium 1.9 Urine Color Yellow Urine Appearance Slight-cloudy Urine pH 6.0 Ur Specific [place] <= 1.005 Urine Protein Negative Urine Glucose (UA) Negative Urine Ketones Negative Urine Blood Trace-intact H Urine Nitrate Negative Urine Bilirubin Negative Urine Urobilinogen 0.2 Ur Leukocyte Esterase Negative Urine RBC 0 - 2 Urine WBC 0 - 2 Ur Epithelial Cells 0 - 2 Urine Bacteria Many Assessment & Plan - Assessment and Plan (Free Text) Assessment: This is a 66Y F with PMH multiple sclerosis, HTN, anxiety/depression, GERD and HLD who came to ED for AMS and seizure like activity. The described seizures are most likely simple partial seizures. Ambulatory EEG was completed yesterday and still has not been read. Head CT negative for acute pathology. Plan: - Will obtain brain MRI - CT cervical spine ordered - Continue Topamax - Seizure precautions - Physical therapy Patient will follow up with Dr. Agrawal as outpatient for ambulatory EMG results and monitoring of MS. Case seen, discussed and reviewed with Dr. Corrales. Christian Suggs PGY2 - Date & Time Date: 05/11/17 Time: 10:48 <Omega Corrales - Last Filed: 05/11/17 13:15> Meds - Medications Medications: Current Medications Alprazolam (Xanax) 0.5 mg PO DAILY MARYSE PRN Reason: Protocol Alprazolam (Xanax) 0.5 mg PO BID PRN; Protocol PRN Reason: Anxiety Last Admin: 05/11/17 12:31 Dose: 0.5 mg Amlodipine Besylate (Norvasc) 10 mg PO DAILY [facility] Atorvastatin Calcium (Lipitor) 40 mg PO DAILY MARYSE Last Admin: 05/11/17 12:32 Dose: 40 mg Clonazepam (Klonopin) 0.5 mg PO HS [facility] PRN Reason: Protocol Last Admin: 05/10/17 22:45 Dose: 0.5 mg Famotidine (Pepcid) 40 mg PO DAILY [facility] Last Admin: 05/11/17 12:32 Dose: 40 mg Folic Acid (Folic Acid) 1 mg PO DAILY [facility] Last Admin: 05/11/17 12:32 Dose: 1 mg Home Med (Home Med) 1 unit PO DAILY [facility] Loratadine (Claritin) 10 mg PO DAILY [facility] Last Admin: 05/11/17 12:32 Dose: 10 mg Losartan Potassium (Cozaar) 50 mg PO DAILY [facility] Paroxetine HCl (Paxil) 10 mg PO DAILY [facility] Last Admin: 05/11/17 12:33 Dose: 10 mg Topiramate (Topamax) 200 mg PO BID [facility] PRN Reason: Protocol Last Admin: 05/11/17 12:32 Dose: 200 mg Results - Vital Signs Recent Vital Signs: Last Vital Signs Temp 97.6 F 05/11/17 09:47 Pulse 84 05/11/17 09:47 Resp 18 05/11/17 09:47 BP 140/78 05/11/17 09:47 Pulse Ox 95 05/11/17 09:47 - Labs Result Diagrams: 05/11/17 09:45 05/11/17 09:45 Labs: Laboratory Results - last 24 hr 05/10/17 05/11/17 05/11/17 18:55 09:45 09:45 WBC 5.3 RBC 4.37 Hgb 12.4 Hct 38.8 MCV 88.8 MCH 28.4 MCHC 32.0 RDW 14.0 Plt Count 235 MPV 8.6 Sodium 144 Potassium 3.8 Chloride 106 Carbon Dioxide 28 Anion Gap 14 BUN 19 Creatinine 0.8 Est GFR ( Amer) > 60 Est GFR (Non-Af Amer) > 60 Random Glucose 98 Calcium 8.9 Magnesium 1.9 TSH 3rd Generation Urine Color Yellow Urine Appearance Slight-cloudy Urine pH 6.0 Ur Specific [place] <= 1.005 Urine Protein Negative Urine Glucose (UA) Negative Urine Ketones Negative Urine Blood Trace-intact H Urine Nitrate Negative Urine Bilirubin Negative Urine Urobilinogen 0.2 Ur Leukocyte Esterase Negative Urine RBC 0 - 2 Urine WBC 0 - 2 Ur Epithelial Cells 0 - 2 Urine Bacteria Many 05/11/17 09:45 WBC RBC Hgb Hct MCV MCH MCHC RDW Plt Count MPV Sodium Potassium Chloride Carbon Dioxide Anion Gap BUN Creatinine Est GFR ( Amer) Est GFR (Non-Af Amer) Random Glucose Calcium Magnesium TSH 3rd Generation 1.39 Urine Color Urine Appearance Urine pH Ur Specific [place] Urine Protein Urine Glucose (UA) Urine Ketones Urine Blood Urine Nitrate Urine Bilirubin Urine Urobilinogen Ur Leukocyte Esterase Urine RBC Urine WBC Ur Epithelial Cells Urine Bacteria Attending/Attestation - Attestation I have personally seen and examined this patient.: Yes I have fully participated in the care of the patient.: Yes I have reviewed all pertinent clinical information: Yes
[2017-05-11] MEDS ORDERED: Home Med 1 UNIT PO SCH (11:00)
[2017-05-11 16:13] VITALS: RESP 20
--- NOTE | 2017-05-11 20:03 | MRI ---
PROCEDURE: MRI BRAIN WITHOUT CONTRAST HISTORY: Seizures COMPARISON: [facility] 07/25/2016 TECHNIQUE: Multiplanar, multisequence MR images of the brain were obtained without intravenous contrast enhancement. FINDINGS: HEMORRHAGE: None DWI: No evidence of acute or early subacute infarction. BRAIN PARENCHYMA: Again seen are T2/FLAIR hyperintense lesions in the subcortical and periventricular white matter not significantly changed since the prior examination. There are no infratentorial lesions. There is no mass, mass effect or abnormal extra-axial fluid collection. VENTRICLES: There is mild global parenchymal volume loss and proportionate enlargement of the ventricles and cortical sulci. . CRANIUM: There is normal bone marrow signal pattern. ORBITS: Grossly unremarkable. PARANASAL SINUSES/MASTOIDS: Predominantly clear. VASCULAR SYSTEM: There are normal signal voids in the larger intracranial arteries. OTHER FINDINGS: None. IMPRESSION: 1. No acute intracranial abnormality. 2. Little interval change in periventricular white matter lesions consistent with demyelinating lesions of multiple sclerosis with the stated clinical history.
[2017-05-12 07:51] VITALS: BP 132/78; PULSE 65; TEMP 98.4; O2SAT 95
[2017-05-12] MEDS ORDERED: AUBAGIO 14 MG PO SCH ×3 (10:00)
--- NOTE | 2017-05-13 03:32 | DS ---
SUBJECTIVE: The patient has no complaints of any chest pain, shortness of breath or headache. She was admitted to the hospital for possible new-onset seizures. They were also concerned the patient may have stroke. She was evaluated by Dr. Corrales from Neurology. The patient also had an MRI of the brain. The MRI of the brain did not show any significant abnormalities compared to previous MRI. The patient is currently comfortable, normal activity. The patient had a EEG done by Dr. Agrawal and this was abnormal. He had stated to Dr. Corrales that he will follow her up as an outpatient and decide upon management. The patient is going to be discharged home today and to follow up as outpatient with him. PHYSICAL EXAMINATION: VITAL SIGNS: Temperature 98.4, pulse 65, blood pressure 132/78, respirations 20, O2 saturation 95%. GENERAL: The patient is lying in bed, flat, comfortable. HEENT: No oral lesion. Anicteric sclerae. Moist mucosa. NECK: No JVD, adenopathy, or thyromegaly. CARDIOVASCULAR: S1 and S2, regular. No murmurs, rubs, or gallops. LUNGS: Clear to auscultation bilaterally. No wheeze, rales, or rhonchi. ABDOMEN: Bowel sounds are positive, soft, nontender and nondistended. EXTREMITIES: no cyanosis, clubbing or edema. ASSESSMENT: 1. Seizures, new-onset. 2. Multiple sclerosis. 3. Dyslipidemia. 4. Hypertension. PLAN: The patient is gong to be discharged home. She is going to continue with her Xanax. She is receiving blood pressure medications with Norvasc and losartan. This will continues. She does have anxiety issues as well. Condition stable. Activities, increase as tolerated. Abisai Delarosa MD
== END 2017-05-12 11:02 | disposition home or self-care (01) | DRG 101 ==
LOC: ED 14:56 → ERH 16:46 → 2RNO 21:11 → 5RNO 05-11 09:37
PROVIDERS: ADMIT Internal Medicine Nephrology; ATTEND Internal Medicine Nephrology
DX: G40.89 Other seizures (principal); G35 Multiple sclerosis; E78.5 Hyperlipidemia, unspecified; I10 Essential (primary) hypertension; F41.9 Anxiety disorder, unspecified; K21.9 Gastro-esophageal reflux disease without esophagitis; M81.0 Age-related osteoporosis without current pathological fracture; Z79.899 Other long term (current) drug therapy; Z90.49 Acquired absence of other specified parts of digestive tract; Z87.81 Personal history of (healed) traumatic fracture; S30.1XXA Contusion of abdominal wall, initial encounter

== ENCOUNTER 2017-11-30 12:25 | Day surgery (SDC) | payer MEDICARE, BC ==
[2017-11-26 10:41] VITALS: BMI 34.3
[2017-11-30] MEDS ORDERED: Sodium Chloride 0.9% 1,000 ML IV SCH (14:00)
[2017-11-30] MEDS ORDERED: Propofol 10 mg/ml Inj (20 ML) ONE (14:16)
[2017-11-30 14:56] VITALS: O2SAT 95
[2017-11-30 17:09] VITALS: BP 127/71; PULSE 68; RESP 20; TEMP 98.6
== END 2017-11-30 16:20 | disposition home or self-care (01) ==
LOC: ENDO 12:25
PROVIDERS: ATTEND Internal Medicine Gastroenterology
DX: R19.7 Diarrhea, unspecified (principal); K57.30 Diverticulosis of large intestine without perforation or abscess without bleeding; K64.8 Other hemorrhoids; K29.50 Unspecified chronic gastritis without bleeding; K44.9 Diaphragmatic hernia without obstruction or gangrene
CPT/HCPCS: 43239; 45380; 88305; 88312; 88342; J2001; J2704; J7040 ×2

== ENCOUNTER 2018-09-11 11:08 | Outpatient (CLI) | payer MEDICARE, BC | END 2018-09-11 11:09 | disposition home or self-care (01) | LOC: LAB 11:08 ==

== ENCOUNTER 2018-09-12 11:00 | Outpatient (CLI) | payer MEDICARE, BC | END 2018-09-12 11:01 | disposition home or self-care (01) | LOC: RAD 11:00 ==